=== PATIENT | male | born 1950 | race Caucasian/White ===

== ENCOUNTER 2023-08-26 16:20 | Inpatient (IN) | payer MEDICARE, OTHER, SELFPAY ==
[2023-08-26] VITALS (13 sets, daily range): BP systolic 28–154; BP diastolic 70–96; BMI 23.2
--- NOTE | 2023-08-26 07:46 | ED.GENMED ---
History of Present Illness
<Juliocesar Boyle PA-C - Last Filed: 08/26/23 10:47>
General
Chief Complaint: Abdominal Pain
Source: patient and family
Time Seen by Provider: 08/26/23 07:34
Travel History
Have you had any contact with someone who has COVID-19?: No
Do you have any symptoms of coronavirus? Fever > 100 degrees, chills, cough, shortness of breath, sore throat, loss of taste or smell, muscle aches, or headache?: No
History of Present Illness
History of Present Illness:
73-year-old male with past medical history of kidney disease presenting the emergency department for evaluation of 1 week of abdominal discomfort, initially generalized but over the last few days more localized to the right lower quadrant. Patient
states he felt as if he were constipated but notes he had a fairly large bowel movement yesterday but did not have any relief of his symptoms. He attempted to have a bowel movement this morning but due to the nature of the pain was unable to do so
and decided to come to the ER for further evaluation. States has had a little bit of diminished p.o. intake to solids but not liquids, no nausea or vomiting, no urinary symptoms, no fevers but does admit to some cold sweats this morning. Denies
any history of similar. Social history was noted for occasional cigar. Patient does note a previous history of abdominal hernia repairs but no other abdominal surgeries. No other concerns.
Past History
<Juliocesar Boyle PA-C - Last Filed: 08/26/23 10:47>
Past History
ED Past Medical History: Renal failure, Other (Kidney stones) and Other (BPH)
ED Past Surgical History: Orthopedic and Urological
Social History
Tobacco: Non-smoker
Alcohol: Occasional
Drug: None
Personal:
Living: with family
Employment: Employed
Family History
Family History: Other (Noncontributory)
Review of Systems
<Juliocesar Boyle PA-C - Last Filed: 08/26/23 10:47>
Review of Systems
All Other Systems: ROS reviewed and negative except as documented in HPI and ROS
Phy Exam
<Juliocesar Boyle PA-C - Last Filed: 08/26/23 10:47>
Physical Exam
Physical Exam:
GENERAL: Alert , appears quite uncomfortable
EYE: clear conjunctiva b/l
HEAD: NCAT
ENT: o/p clr, mmm.
CARDIAC: Regular rate and rhythm .
LUNGS: Clear breath sounds bilaterally, no acute respiratory distress, no wheezes/rales/rhonchi
ABDOMEN: Firm and rigid, significantly tender in the right lower quadrant with guarding, normoactive bowel sounds
NEUROLOGICAL: Alert and oriented
SKIN: Warm and dry, skin intact.
MUSCULOSKELETAL: well perfused.
PSYCH: Normal and appropriate interaction.
Scores
<Juliocesar Boyle PA-C - Last Filed: 08/26/23 10:47>
Heart Failure Risk
Heart Failure Risk Score: Not Applicable
Heart Score for Chest Pain Patients
STEMI patient?: Not applicable
Withdrawal Assessment of Alcohol
Withdrawal Assessment Completed?: Not applicable
Course
<Juliocesar Boyle PA-C - Last Filed: 08/26/23 10:47>
Orders/Labs/Results
Orders:
Orders
08/26/23 07:45
Urinalysis Reflex To Culture Urgent
Date Specimen was Collected: 08/26/23
Time Specimen was Collected: 10:32
0.9% Sodium Chloride 1000 ml [Nss] 1,000 ml IV BOLUS
HYDROmorphone [Dilaudid] 0.5 mg IV NOW STA
Iohexol [Omnipaque] See Protocol PO NOW STA
08/26/23 08:03
Ondansetron Injectable [Zofran] 4 mg .ROUTE .STK-MED ONE
Ondansetron Injectable [Zofran] 4 mg IV NOW STA
08/26/23 08:07
Complete Blood Count/With Diff Urgent
Comprehensive Metabolic Panel Urgent
Lactic Acid Q4H
Comment: CANCEL 2nd LACTIC ACID IF 1st LACTIC ACID IS LESS THAN 2
Lipase Urgent
PTT Urgent
Prothrombin Time Urgent
Blood Culture Q30M
JAMES Source: Blood/Venous
Specimen Description:
Blood Culture Q30M
JAMES Source: Blood/Venous
Specimen Description:
08/26/23 08:37
HYDROmorphone [Dilaudid] 1 mg IV NOW STA
08/26/23 09:24
CT Abd/pel W Iv And Oral Contr Urgent
Comment:
Reason For Exam: RLQ pain, guarding
08/26/23 10:04
HYDROmorphone [Dilaudid] 1 mg IV NOW STA
Piperacillin/Tazo 3.375 Gram [Zosyn] 3.375 gram in 50 ml IV NOW
08/26/23 10:33
Fentanyl Citrate/Pf [Sublimaze] 100 mcg .ROUTE .STK-MED ONE
Midazolam HCl [Versed] 2 mg .ROUTE .STK-MED ONE
08/26/23 10:34
Dexamethasone Sod Phosphate [Decadron] 20 mg .ROUTE .STK-MED ONE
Lidocaine 2% Mpf [Xylocaine Mpf 2%] 100 mg .ROUTE .STK-MED ONE
Ondansetron Injectable [Zofran] 4 mg .ROUTE .STK-MED ONE
Propofol [Diprivan] 20 ml .ROUTE .STK-MED
Rocuronium [place] [Rocuronium] 50 mg .ROUTE .STK-MED ONE
08/26/23 11:45
Lactic Acid Q4H
Comment: CANCEL 2nd LACTIC ACID IF 1st LACTIC ACID IS LESS THAN 2
Abnormal Lab Results
08/26/23
08:07
WBC 13.7 H 10^3/uL
(4.8-10.8)
MCH 32.7 H pg
(27.0-31.0)
Abs Immat Gran (auto) 0.1 H 10^3/uL
(0-0.05)
Absolute Neuts (auto) 11.2 H 10^3/uL
(1.4-6.5)
Absolute Monos (auto) 1.0 H 10^3/uL
(0.1-0.6)
Neutrophils % 81.7 H %
(42.2-75.2)
Lymphocytes % 9.8 L %
(20.5-51.1)
Glucose 176 H mg/dl
(70-99)
Total Bilirubin 1.8 H mg/dl
(0.2-1.3)
08/26/23 08:07
08/26/23 08:07
Vital Signs
Initial and Last Documented VS:
Initial Vital Signs
Temp Pulse Resp BP Pulse Ox
98.5 F 74 18 141/85 98
08/26/23 07:27 08/26/23 07:27 08/26/23 07:27 08/26/23 07:27 08/26/23 07:27
Last Documented Vital Signs
Temp Pulse Resp BP Pulse Ox
98.5 F 87 30 146/88 96
08/26/23 07:27 08/26/23 10:00 08/26/23 10:00 08/26/23 10:00 08/26/23 10:16
Rubber Compounder consulted with Physician
Rubber Compounder consulted with physician?: Yes
Name of Physician Consulted: Dariel
<Frantz Vieira, DO - Last Filed: 08/26/23 10:08>
Orders/Labs/Results
Orders:
Orders
08/26/23 07:45
Urinalysis Reflex To Culture Urgent
Date Specimen was Collected: 08/26/23
Time Specimen was Collected: 10:32
0.9% Sodium Chloride 1000 ml [Nss] 1,000 ml IV BOLUS
HYDROmorphone [Dilaudid] 0.5 mg IV NOW STA
Iohexol [Omnipaque] See Protocol PO NOW STA
08/26/23 08:03
Ondansetron Injectable [Zofran] 4 mg .ROUTE .STK-MED ONE
Ondansetron Injectable [Zofran] 4 mg IV NOW STA
08/26/23 08:07
Complete Blood Count/With Diff Urgent
Comprehensive Metabolic Panel Urgent
Lactic Acid Q4H
Comment: CANCEL 2nd LACTIC ACID IF 1st LACTIC ACID IS LESS THAN 2
Lipase Urgent
PTT Urgent
Prothrombin Time Urgent
Blood Culture Q30M
JAMES Source: Blood/Venous
Specimen Description:
Blood Culture Q30M
JAMES Source: Blood/Venous
Specimen Description:
08/26/23 08:37
HYDROmorphone [Dilaudid] 1 mg IV NOW STA
08/26/23 09:24
CT Abd/pel W Iv And Oral Contr Urgent
Comment:
Reason For Exam: RLQ pain, guarding
08/26/23 10:04
HYDROmorphone [Dilaudid] 1 mg IV NOW STA
Piperacillin/Tazo 3.375 Gram [Zosyn] 3.375 gram in 50 ml IV NOW
08/26/23 10:33
Fentanyl Citrate/Pf [Sublimaze] 100 mcg .ROUTE .STK-MED ONE
Midazolam HCl [Versed] 2 mg .ROUTE .STK-MED ONE
08/26/23 10:34
Dexamethasone Sod Phosphate [Decadron] 20 mg .ROUTE .STK-MED ONE
Lidocaine 2% Mpf [Xylocaine Mpf 2%] 100 mg .ROUTE .STK-MED ONE
Ondansetron Injectable [Zofran] 4 mg .ROUTE .STK-MED ONE
Propofol [Diprivan] 20 ml .ROUTE .STK-MED
Rocuronium [place] [Rocuronium] 50 mg .ROUTE .STK-MED ONE
08/26/23 11:45
Lactic Acid Q4H
Comment: CANCEL 2nd LACTIC ACID IF 1st LACTIC ACID IS LESS THAN 2
Abnormal Lab Results
08/26/23
08:07
WBC 13.7 H 10^3/uL
(4.8-10.8)
MCH 32.7 H pg
(27.0-31.0)
Abs Immat Gran (auto) 0.1 H 10^3/uL
(0-0.05)
Absolute Neuts (auto) 11.2 H 10^3/uL
(1.4-6.5)
Absolute Monos (auto) 1.0 H 10^3/uL
(0.1-0.6)
Neutrophils % 81.7 H %
(42.2-75.2)
Lymphocytes % 9.8 L %
(20.5-51.1)
Glucose 176 H mg/dl
(70-99)
Total Bilirubin 1.8 H mg/dl
(0.2-1.3)
08/26/23 08:07
08/26/23 08:07
Vital Signs
Initial and Last Documented VS:
Initial Vital Signs
Temp Pulse Resp BP Pulse Ox
98.5 F 74 18 141/85 98
08/26/23 07:27 08/26/23 07:27 08/26/23 07:27 08/26/23 07:27 08/26/23 07:27
Last Documented Vital Signs
Temp Pulse Resp BP Pulse Ox
98.5 F 87 30 146/88 96
08/26/23 07:27 08/26/23 10:00 08/26/23 10:00 08/26/23 10:00 08/26/23 10:16
<Juliocesar Boyle PA-C - Last Filed: 08/26/23 10:47>
MDM/Problems Addressed
Differential Diagnosis Includes:
Peritonitis, appendicitis, colitis, diverticulitis, surgical abdomen, constipation
MDM/Problems Addressed:
73-year-old male presenting to the emergency department for evaluation of right lower quadrant abdominal pain x 1 week, today symptoms worse. Did not take anything for pain. Appears very uncomfortable and has significant tenderness within the
right lower quadrant during my exam. Patient notes a history of renal cancer and kidney disease so will avoid any nephrotoxic agents including IV contrast. CT scan with oral contrast ordered. Dilaudid ordered for pain control. Labs including
lactic acid and blood cultures ordered. Anticipate admission.
Chronic conditions affecting care: Kidney disease
<Juliocesar Boyle PA-C - Last Filed: 08/26/23 10:47>
*Pulse Oximetry
Patient hypoxic: no
*Critical Care Note
Total Time (30-74mins, 75-104mins- exclusive of procedures): Not Applicable
Data Reviewed
Review of Other/Old Records Reveals: Labs and Records
Source: patient and family
<SHASHA Zavaleta Last Filed: 08/26/23 10:47>
Comment
Comment:
On multiple reevaluations patient with continued pain despite IV Dilaudid. Based off his labs patient is okay to have an IV contrast study so to help expedite CT scan this was changed to both an IV and oral contrast study.
Patient Management
Discussion with other providers: Instrument Repair Supervisor and Radiologist
Escalation/DeEscalation of care consider admission/obs:
Radiologist notified that patient has acute appendicitis with appendicoliths. No perforation. Surgery was notified and will come to the ER to evaluate patient. Additional dose of Dilaudid was given. Patient taken to the OR within the hour.
ED Attending Note
<Juliocesar Boyle PA-C - Last Filed: 08/26/23 10:47>
-
Portions of this chart may have been created with voice recognition software.� Occasional wrong word or��sound alike� substitutions may have occurred due to the inherent limitations of voice recognition software.
<Frantz Vieira DO - Last Filed: 08/26/23 10:08>
ED Attending Note
Patient seen and examined by attending physician: Yes
I performed the substantive portion of visit, reviewed & personally made and approve the management plan that is documented in note by myself or SILVINA.: Yes
ED Attending Note:
I have seen and evaluated the patient with a [id number] encounter. I have spoken to the advance practicer provider and involved in the medical history, the physical exam, medical decision making.
Evaluation and management service: agree unless noted differently below.
Results interpretation: agree unless noted differently below.
Focused HPI: 73-year-old male presenting with right lower quadrant pain. This has been ongoing for the past week or so
Physical exam: Very uncomfortable. Point tenderness to right lower quadrant
Medical Decision Making: CT consistent with acute appendicitis. Patient started on Zosyn. Surgery made aware
Discharge Plan
Departure
Patient Disposition: Admit
Date of Disposition: 08/26/23
Time of Disposition: 10:07
Admit to: Med/Surg
Presentation/result/management discussed w/ accepting MD/DO: General surgeon
Discharge Problem:
Acute appendicitis
Prescriptions:
No Action
duloxetine 30 MG capsule,delayed release(DR/EC)
30 mg PO DAILY
amlodipine 5 mg tablet
5 mg PO DAILY
hydrocodone-acetaminophen 7.5-325 mg tablet
1 tab PO Q8HPRN PRN (Reason: SEVERE PAIN)
ibuprofen 200 mg Tablet
200 mg PO Q6H PRN (Reason: MILD PAIN)
magnesium oxide 500 mg magnesium Tablet
500 mg PO DAILY
omega 7-bic-sbt-fish oil [Fish Oil] 60-90-500 mg Capsule
1 cap PO DAILY
For Life Supplements
1 dose PO DAILY
Referrals:
Patrick Noble, [Family Provider] -
Interventions
Interventions:
*Risk Screen - Suicide Last Done: 08/26/23 07:27
*General Assessment Last Done: 08/26/23 07:27
*Neglect/Abuse Screening Last Done: 08/26/23 07:27
ED- Fall Risk Assessment Last Done: 08/26/23 08:04
*ED COVID-19 Vaccine History Last Done: 08/26/23 07:27
TK-Vpagkf-Zrvggccjvr Assessment Last Done: 08/26/23 08:04
Discharge Date and Time
Print Language: RWANDAN
[2023-08-26] MEDS: ZOFRAN 4 MG IV (08:08)
[2023-08-26] MEDS: DILAUDID 0.5 MG IV (08:08)
[2023-08-26] MEDS: NSS 1000 IV (08:08)
[2023-08-26] MEDS: OMNIPAQUE 50 ML PO (08:09)
[2023-08-26 08:32] LABS: % Basophils 0.2 % (0-2); % Eosinophils 0.4 % (0-6); % Immature Granulocytes 0.4 % (0-0.5); % Lymphocytes 9.8 % (20.5-51.1); % Monocytes 7.5 % (1.7-9.3); % Neutrophils 81.7 % (42.2-75.2); Absolute Eosinophils 0.1 10^3/uL (0-0.7); Absolute Immature Granulocytes 0.1 10^3/uL (0-0.05); Absolute Lymphocytes 1.3 10^3/uL (1.2-3.4); Absolute Neutrophils 11.2 10^3/uL (1.4-6.5); Hematocrit 45.2 % (39.0-52.0); Hemoglobin 16.3 g/dL (13.0-18.0); Mean Corp Hgb Conc. 36.1 g/dL (33.0-37.0); Mean Corpuscular Hgb 32.7 pg (27.0-31.0); Mean Corpuscular Volume 90.6 fL (80.0-94.0); Mean Platelet Volume 9.5 fL (7.4-10.4); Nucleated Red Blood Cells % 0 % (-); Platelet Count 187 10^3/uL (130-400); Red Blood Cell Count 4.99 10^6/uL (4.70-6.10); Red Cell Dist. Width 12.9 % (11.5-14.5); White Blood Cell Count 13.7 10^3/uL (4.8-10.8)
[2023-08-26 08:43] LABS: INR 1.06; PT 13.6 Sec (11.4-14.6)
[2023-08-26 08:44] LABS: APTT 27.9 Sec (23.4-35.0)
[2023-08-26 08:55] LABS: ALT (SGPT) 30 U/L (0-50); AST (SGOT) 26 U/L (17-59); Albumin 4.5 g/dl (3.5-5.0); Alkaline Phosphatase 89 U/L (38-126); Blood Urea Nitrogen 18 mg/dl (9-20); Calcium 9.7 mg/dl (8.4-10.2); Carbon Dioxide 25 mmol/L (22-30); Chloride 104 mmol/L (98-107); Estimated Creatinine Clearance 56 ml/min; Glucose 176 mg/dl (70-99); Lipase 100 U/L (23-300); Potassium 4.5 mmol/L (3.5-5.1); Sodium 139 mmol/L (135-145); Total Bilirubin 1.8 mg/dl (0.2-1.3); Total Protein 7.7 g/dl (6.3-8.2); eGFR > 60.00
[2023-08-26 08:56] LABS: Lactic Acid 1.6 mmol/L (0.7-2.0)
[2023-08-26] MEDS: DILAUDID 1 MG IV ×2 (09:00→10:06)
[2023-08-26] MEDS: ZOSYN 50 IV (10:07)
--- NOTE | 2023-08-26 11:13 | W.SUR.PREOP ---
Pre-Operative Surgical Note
-
I have examined this patient prior to the performance of the scheduled procedure.
The patient's condition is unchanged from the time of the current History and
Physical and the patient is able to undergo the scheduled procedure.
--- NOTE | 2023-08-26 11:14 | HPS.HSE ---
Family Physician
-
Family Physician: Patrick Noble
Chief Complaint
-
Abdominal pain
History of Present Illness
This is a 73-year-old male who presents with a 1 week history of abdominal discomfort now more focalized to the right lower quadrant. Patient initially stated that it felt like constipation and had a fairly large bowel yesterday but did not feel
any relief of symptoms. He is nauseous and endorses some anorexia but no vomiting. The patient denies Fever, Chest Pain, Shortness Of Breath, changes in urinary and bowel habits, unintentional weight loss, jaundice, icterus, acolic stools.
Medical History
Past Medical History
Past Medical History: Reports Other (Renal failure, kidney stones, BPH)
Past Surgical History: Reports Orthopedic, Urological and Other (?Hernia surgery)
Social History
Tobacco: Non-smoker
Alcohol: Occasional
Drug: None
Personal:
Living: With Family
Family History
Family History: Not pertinent
Allergies / Home Medications
Allergies reflects when Allergies were last updated in [facility].
Home Medications with original date entered in [facility]
Allergy/Medication List:
No known drug allergies.
Review of Systems
-
A 12 point ROS was completed and negative except as noted: Yes
Physical Exam
Vital Signs
Vital Signs
Temp Pulse Resp BP Pulse Ox
98.5 F 94 28 146/88 95
08/26/23 07:27 08/26/23 10:30 08/26/23 10:30 08/26/23 10:00 08/26/23 10:30
Physical Exam
General: Well Developed
HEENT: NormoCephalic
Respiratory: Non Labored Respirations
GI: Soft, Tender, Distended and Other (Rigid abdomen.)
Laboratory Results
-
08/26/23 08:07
08/26/23 08:07
Laboratory Results
PT 13.6 Sec (11.4-14.6) 08/26/23 08:07
INR 1.06 08/26/23 08:07
APTT 27.9 Sec (23.4-35.0) 08/26/23 08:07
Lactic Acid Cancelled 08/26/23 11:45
Total Bilirubin 1.8 mg/dl (0.2-1.3) H 08/26/23 08:07
AST 26 U/L (17-59) 08/26/23 08:07
ALT 30 U/L (0-50) 08/26/23 08:07
Alkaline Phosphatase 89 U/L (38-126) 08/26/23 08:07
Lipase 100 U/L (23-300) 08/26/23 08:07
Data Reviewed
-
CT Scan: Image Personally Visualized and interpreted, Report Reviewed by me, Discussed with Physician and Discussed with Patient
Lab Data: Labs Reviewed by me, Discussed with Physician, Discussed with Patient and Discussed with Family
Impression/Plan
-
This is a 73-year-old male who presents with 1 week history of worsening abdominal pain now focal to the right lower quadrant. He is rigid on exam. Vital signs are otherwise stable. He does have a leukocytosis and his CT scan has a very large
dilated appendix with appendicolith concerning for acute appendicitis.
N.p.o., IV fluids, IV Zosyn
Will plan for laparoscopic, possible open appendectomy in the OR today.
Risks/Benefits/Alternatives, expected postoperative course and possible complications (bleeding, infection, injury to surrounding structures, acute/chronic pain) discussed at length. Patient wishes to proceed with surgery. All questions answered.
Consent obtained.
I spent roughly 75 minutes in total for the care of this patient today including direct patient care and counseling, reviewing labs, imaging, coordination of care, as well as documentation.
--- NOTE | 2023-08-26 14:07 | W.IMMPOSTOP ---
Addendum entered and electronically signed by Juan Antonio Shipman MD 08/26/23 20:37:
Of note, patient did did have an episode of emesis (oatmeal) on induction, despite RSI. Unclear if patient truly aspirated.
Original Note:
Surgical Immed Post Op Note
-
Primary Surgeon: Juna Antonio Shipman MD
Assisting Surgeon: Gibson Whatley MD
Pre-op Diagnosis: Acute appendicitis
Post-op Diagnosis: Perforated appendicitis
Procedure Performed:
1. Laparoscopic cecectomy
2. Washout of intra-abdominal abscess
Anesthesia Type: General
Specimen / Cultures:
1. Right lower quadrant fluid for Gram stain and culture.
2. Cecum and appendix
Estimated Blood Loss: 11cc
Complications: None
Operative Findings: Perforated appendicitis with purulent fluid tracking along the entire right colic gutter from above the liver to down the pelvis. Fecalith at the base of the appendix with gangrenous changes and perforation noted there.
Chacorta assisted with mobilization of the terminal ileum as well as the right colon before we were able to perform the cecectomy, taking care to preserve the ileocolic valve.
POST OP PLAN:
Imaging: Chest x-ray to confirm NG tube placement
Labs: Routine AM
Diet: n.p.o.
Analgesia: IV Tylenol, Dilaudid 0.5mg q2h PRN
Neuro/vascular checks: q4h
AC/AP: Hold Therapeutic AC, Ok for DVT PPx
Activity: Ad Jennie
Wound/Incisions/Drains: Routine, DANN to bulb suction. Lazaro to gravity, anticipate removal tomorrow.
Abx: Continue antibiotics x 7 days.
Dispo: RNF
[2023-08-26] MEDS: NORMOSOL-R 1000 IV (14:55)
--- NOTE | 2023-08-26 15:35 | PTCARENOTE ---
Pt arrived to [facility] from PACU s/p perforated appendicitis and ileocecectomy. Pt IVF infusing, on 3L NV satting 95%, 2 lap sites AKANKSHA, both C/D/I, suprapubic DANN drain in place draining sanguineous, R nare NGT in place to low intermittent suction,
Lazaro in place draining yellow urine. Pt oriented to call castro with room, bed locked and in lowest position, call castro within reach. Pt states pain 3/10 and declines pain medication at this time.
[2023-08-26] MEDS: OFIRMEV 100 IV (17:07)
[2023-08-26] MEDS: LOVENOX 40 MG SC (17:09)
[2023-08-26] MEDS: NSS (PRESERVATIVE FREE) 10 ML IV (21:14)
[2023-08-26] MEDS: PROTONIX IV 40 MG IV (21:14)
[2023-08-27] MEDS: OFIRMEV 100 IV ×3 (00:17→12:05)
[2023-08-27 03:00] VITALS: BP 121/67
--- NOTE | 2023-08-27 05:07 | PTCARENOTE ---
Pt stated that NGT 'felt weird' Looked in the back of his mouth and the tube was curled in back of pt throat. NGT removed at this time. train caller general surgeon Dr. Petit notified. orders received, abstain from placing new NGT unless nauseous.
Placed pt on aspiration precautions. HOB locked at 30 degrees. Pt updated of plan of care.
[2023-08-27] MEDS: NORMOSOL-R 1000 IV ×2 (05:24→17:27)
[2023-08-27 05:59] LABS: % Basophils 0.1 % (0-2); % Immature Granulocytes 0.3 % (0-0.5); % Lymphocytes 5.8 % (20.5-51.1); % Monocytes 6.5 % (1.7-9.3); % Neutrophils 87.3 % (42.2-75.2); Absolute Lymphocytes 0.6 10^3/uL (1.2-3.4); Absolute Monocytes 0.7 10^3/uL (0.1-0.6); Absolute Neutrophils 9.5 10^3/uL (1.4-6.5); Hematocrit 39.5 % (39.0-52.0); Mean Corp Hgb Conc. 35.4 g/dL (33.0-37.0); Mean Corpuscular Volume 93.2 fL (80.0-94.0); Mean Platelet Volume 9.6 fL (7.4-10.4); Nucleated Red Blood Cells % 0 % (-); Platelet Count 138 10^3/uL (130-400); Red Blood Cell Count 4.24 10^6/uL (4.70-6.10); Red Cell Dist. Width 13.1 % (11.5-14.5); White Blood Cell Count 10.9 10^3/uL (4.8-10.8)
[2023-08-27 06:35] LABS: Blood Urea Nitrogen 23 mg/dl (9-20); Calcium 8.3 mg/dl (8.4-10.2); Carbon Dioxide 24 mmol/L (22-30); Chloride 106 mmol/L (98-107); Estimated Creatinine Clearance 62 ml/min; Glucose 123 mg/dl (70-99); Sodium 139 mmol/L (135-145); eGFR > 60.00
[2023-08-27 07:45] VITALS: BP 135/75
[2023-08-27] MEDS: NORVASC 5 MG PO (08:19)
[2023-08-27] MEDS: CYMBALTA DELAYED RELEASE 30 MG PO (08:19)
[2023-08-27] MEDS: PROTONIX IV 40 MG IV (08:19)
[2023-08-27] MEDS: NSS (PRESERVATIVE FREE) 10 ML IV (08:19)
[2023-08-27] MEDS: DILAUDID 0.5 MG IV (08:29)
--- NOTE | 2023-08-27 09:23 | W.PN.GS2 ---
Today's Communication / Plan
-
-- NPO, IVF, replace NGT if nausea or worsening abdominal pain
-- Pain control: Tylenol, Toradol, IV Dilaudid PRN
-- Abx: Zosyn
-- OOB/ambulate
Assessment / Plan
-
Patient is a 73 yp M POD#1 s/p laparoscopic partial cecectomy (with appendectomy) and drainage of intra-abdominal abscess
NG tube found to be coiled in back of throat and removed this AM. Denies any current nausea or vomiting. No worsening abdominal pain. Plan to monitor without an NG tube for ileus symptoms at this time, if worsening pain or nausea will need to
replace NG tube. Awaiting return of bowel function.
-- NPO, IVF, replace NGT if nausea or worsening abdominal pain
-- Pain control: Tylenol, Toradol, IV Dilaudid PRN
-- Abx: Zosyn
-- OOB/ambulate
-- Lazaro order for removal on POD#2
-- GI: Protonix
-- DVT: Lovenox
-- Home Amlodipine ordered
Subjective Data
-
Date of Service: August 27, 2023
No major complaints. Denies any nausea or vomiting. No. BM. No fevers. Denies chest pain or worsening shortness of breath. Minimal ambulation.
Objective Data
-
Intake and Output
08/26/23 08/27/23 08/28/23
06:59 06:59 06:59
Intake Total 1400 / 1400
Output Total 1688 / 1688
Balance -288 / -288
Intake:
IV fluids (Total) 1200 / 1200
Normosol 300 / 300
IV piggybacks 200 / 200
Amount instilled into GI Tube ( 0 / 0
Total)
Gastrostomy 0 / 0
Output:
Drain Output (Total) 188 / 188
Middle Abdomen Aroldo-Gutierrez A 188 / 188
Gastrointestinal tube output ( 350 / 350
Total)
Gastrostomy 350 / 350
Urine, Lazaro 1150 / 1150
Vital Signs
Temp Pulse Resp BP Pulse Ox
98.3 F 69 17 135/75 96
08/27/23 07:45 08/27/23 07:45 08/27/23 07:45 08/27/23 08:19 08/27/23 07:45
Lab Results
08/27/23 05:09
08/27/23 05:09
Calcium 8.3 mg/dl (8.4-10.2) L 08/27/23 05:09
Total Bilirubin 1.8 mg/dl (0.2-1.3) H 08/26/23 08:07
AST 26 U/L (17-59) 08/26/23 08:07
ALT 30 U/L (0-50) 08/26/23 08:07
Alkaline Phosphatase 89 U/L (38-126) 08/26/23 08:07
Total Protein 7.7 g/dl (6.3-8.2) 08/26/23 08:07
Albumin 4.5 g/dl (3.5-5.0) 08/26/23 08:07
Physical Exam
-
Gen: NAD
Abd: soft, mild/moderate tenderness, mild distension, non-peritoneal, incisions c/d/i - no erythema, ecchymosis or drainage, DANN seropourulent
[2023-08-27] MEDS: ZOSYN 50 IV ×3 (10:03→21:37)
--- NOTE | 2023-08-27 10:52 | OR.RPT ---
Operative Report
Operative Report
Patient Name: Javi Forrest
: 1950
Date of Operation: 08/26/2023
Preoperative Diagnosis: Acute Appendicitis
Postoperative Diagnosis: Perforated appendicitis, intra-abdominal abscess
Procedure(s):
1. Laparoscopic partial cecectomy (with appendectomy)
2. Drainage of the intra-abdominal abscess
Surgeon(s):
Dr. Shipman
Manager Of Construction(s):
Dr. Whatley
Anesthesia: General
Estimated Blood Loss: 11 cc
Urine Output: None
Drains/Lines/Implants:
1. 18 Occitan NG tube placed by anesthesia
2. 16 Occitan Lazaro catheter placed by nursing
3. 19 Occitan round Guzman drain
Specimens:
1. Right lower quadrant abscess fluid for Gram stain and culture
2. Partial cecectomy (cecum and appendix)
HPI/Surgical Indications:
This is a 73-year-old male who presents with a 1 week history of abdominal pain. Exam, labs and imaging are consistent with perforated acute appendicitis. Risks/Benefits/Alternatives were discussed at length, and the patient agreed to proceed with
surgery.
Operative Findings: Perforated appendicitis with purulent fluid tracking along the entire right colic gutter from above the liver to down the pelvis. Fecalith at the base of the appendix with gangrenous changes and perforation noted there.
Chacorta assisted with mobilization of the terminal ileum as well as the right colon before we were able to perform the partial cecectomy, taking care to preserve the ileocolic valve. The left lower quadrant 5 mm port was upsized to a 12 mm port.
Procedure Description:
The patient was placed in the supine position, with the left arm tucked, and general anesthesia was induced. The abdomen was prepared and draped in a sterile fashion so as to expose the entire abdomen. A surgical time out was taken. Abdominal access
was obtained with an 12mm infra-umbilical Dominic Entry. After confirming no injury on entrance, two additional 5mm ports were placed in the suprapubic area just off midline and in the left lower quadrant. The patient was placed in Trendelenberg with
the right slightly up . The appendix was identified in the right lower quadrant surrounded by an abscess which was unroofed by peeling off of the fold of Treves and the terminal ileum. There was pus noted to be tracking all along the right colic
gutter to above the liver and down into the pelvis. A sales representative livestock sample of this fluid was sent for culture before this was all suctioned out. The terminal ileum was mildly adherent to the right pelvic sidewall, this was taken down with sharp
dissection using a scissors. This helped expose the mesoappendix which was divided using LigaSure energy device. The mesoappendix was taken all the way to the body of the appendix itself which was then traced down towards the base of the cecum.
It was readily apparent there was a sub-cm perforation at the base of the appendix which would necessitate at least a partial cecectomy. At this point Dr. Whatley scrubbed in to help with the dissection as no other qualified expanded function dental assistant was available.
The white line of Toldt was identified and taken up the right side to mobilize the right colon up to the mid ascending colon. We then identified the right mesocolon and carefully from the underlying retroperitoneum to help fully mobilize
the appendix and base of the cecum. Initial attempt to divide the cecum using a 45 purple Endo TRUDI via the umbilical port was fairly awkward due to the angle so the left lower quadrant port was upsized to a 12 mm port. Getting good apposition of
the tissues was still difficult due to an appendicolith at the base of the cecum which we had identified preoperatively on CT. We then decided to take first bite using a 45 purple load angling more into the cecum, fairly flush with the terminal
ileum. We were then able to get a handle onto the specimen staple line and set up for better fire across the cecum with a 60 purple load. A final 45 purple load was used to complete the dissection. The cecum and appendix were placed in a
specimen retrieval bag. Hemostasis was achieved with the help of some Nallely sprayed over the surgical field. A 19 Occitan round Guzman was then introduced through the suprapubic port up the right colic gutter. This was sutured in place with a 2-0
nylon suture. The left lower quadrant 12 mm port was then closed with a single interrupted 0 PDS using an Endo passer device. Pneumoperitoneum was then evacuated and our umbilical Dominic port was removed along with the specimen. The umbilical port
was closed with a [id number] 0-PDS and the skin for all ports was closed with interrupted monocryls and covered with dermabond. The patient was awoken from anesthesia in good condition and transported to the recovery area.
I was the attending physician and performed the procedure with help from Dr. Whatley who assisted with tissue retraction, and helping provide exposure in this fairly challenging perforated appendectomy. I was present for all portions of the case
Juan Antonio Shipman MD
[2023-08-27 11:04] VITALS: BP 124/72
--- NOTE | 2023-08-27 11:43 | CM ---
Reviewed chart, met with patient to obtain information for assessment. Patient stated that he lives with his spouse in a two story home with two steps to enter. He described himself as independent with his ADLs, personal care, dressing and bathing.
He ambulates without device. 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 He drives and can transport himself to all of his appointments and does his own shopping.
He has never had VN services.
He has not been to a SNF in the past.
Patient has a prescription plan and he uses, [facility] in [place] for all of his medications.
His PCP is, Dr. Patrick Rayo
Patient stated that he is sore but he feels that he will be able to return home at discharge. Patient's who was at bedside confirmed that she could take care of him.
Plan: Case management will continue to follow and assist with discharge planning. Home when stable.
[2023-08-27 15:13] VITALS: BP 119/67
[2023-08-27] MEDS: TORADOL 15 MG IV (16:20)
[2023-08-27] MEDS: LOVENOX 40 MG SC (17:23)
[2023-08-27 23:00] VITALS: BP 132/71
[2023-08-28] MEDS: ZOSYN 50 IV ×4 (03:57→21:23)
[2023-08-28 07:05] VITALS: BP 142/78
[2023-08-28] MEDS: NORVASC 5 MG PO (07:31)
[2023-08-28] MEDS: CYMBALTA DELAYED RELEASE 30 MG PO (07:31)
[2023-08-28] MEDS: NORMOSOL-R 1000 IV (07:32)
[2023-08-28] MEDS: PROTONIX IV 40 MG IV (07:33)
[2023-08-28] MEDS: NSS (PRESERVATIVE FREE) 10 ML IV (07:34)
[2023-08-28 08:30] LABS: % Basophils 0.1 % (0-2); % Eosinophils 0.9 % (0-6); % Immature Granulocytes 0.3 % (0-0.5); % Lymphocytes 10.6 % (20.5-51.1); % Monocytes 6.8 % (1.7-9.3); % Neutrophils 81.3 % (42.2-75.2); Absolute Eosinophils 0.1 10^3/uL (0-0.7); Absolute Lymphocytes 0.9 10^3/uL (1.2-3.4); Absolute Monocytes 0.6 10^3/uL (0.1-0.6); Absolute Neutrophils 7.1 10^3/uL (1.4-6.5); Hematocrit 38.8 % (39.0-52.0); Hemoglobin 13.8 g/dL (13.0-18.0); Mean Corp Hgb Conc. 35.6 g/dL (33.0-37.0); Mean Corpuscular Hgb 32.7 pg (27.0-31.0); Mean Corpuscular Volume 91.9 fL (80.0-94.0); Mean Platelet Volume 9.5 fL (7.4-10.4); Nucleated Red Blood Cells % 0 % (-); Platelet Count 150 10^3/uL (130-400); Red Blood Cell Count 4.22 10^6/uL (4.70-6.10); Red Cell Dist. Width 13.3 % (11.5-14.5); White Blood Cell Count 8.8 10^3/uL (4.8-10.8)
[2023-08-28 08:33] LABS: Blood Urea Nitrogen 32 mg/dl (9-20); Calcium 8.8 mg/dl (8.4-10.2); Carbon Dioxide 23 mmol/L (22-30); Chloride 109 mmol/L (98-107); Estimated Creatinine Clearance 56 ml/min; Glucose 90 mg/dl (70-99); Potassium 3.7 mmol/L (3.5-5.1); Sodium 139 mmol/L (135-145); eGFR > 60.00
[2023-08-28 15:14] VITALS: BP 130/64
--- NOTE | 2023-08-28 15:22 | W.PN.GS2 ---
Today's Communication / Plan
-
ADAT
IV abx
Assessment / Plan
-
Patient is a 73 yp M POD#2 s/p laparoscopic partial cecectomy (with appendectomy) and drainage of intra-abdominal abscess
Passing flatus
-- CLD lunch --> LRD dinner
-- Pain control: Tylenol, Toradol, IV Dilaudid PRN
-- Abx: Zosyn
-- OOB/ambulate
-- Lazaro out, voiding
-- GI: Protonix
-- DVT: Lovenox
-- Home Amlodipine cont
Subjective Data
-
Date of Service: August 28, 2023
No complaints, passing flatus, feels less distended, hungry, pain controlled, ambulating, voiding
Objective Data
-
Intake and Output
08/27/23 08/28/23 08/29/23
06:59 06:59 06:59
Intake Total 1400 / 1400 2099 / 2099
Output Total 8 / 1887 1425 / 1425 385 / 385
Balance -488 / -488 675 / 675 -385 / -385
Intake:
Oral fluids 0 / 0
IV fluids (Total) 1200 / 1200 1800 / 1800
Normosol 300 / 300
IV piggybacks 200 / 200 300 / 300
Amount instilled into GI Tube ( 0 / 0
Total)
Gastrostomy 0 / 0
Output:
Drain Output (Total) 188 / 188 75 / 75
Middle Abdomen Aroldo-Gutierrez A 188 / 75 / 75
Gastrointestinal tube output ( 350 / 350
Total)
Gastrostomy 350 / 350
Urine, Lazaro 1350 / 1350 1350 / 1350
Urine, Voided 385 / 385
Vital Signs
Temp Pulse Resp BP Pulse Ox
97.7 F 68 18 130/64 97
08/28/23 15:14 08/28/23 15:14 08/28/23 15:14 08/28/23 15:14 08/28/23 15:14
Lab Results
08/28/23 08:05
08/28/23 08:05
Calcium 8.8 mg/dl (8.4-10.2) 08/28/23 08:05
Total Bilirubin 1.8 mg/dl (0.2-1.3) H 08/26/23 08:07
AST 26 U/L (17-59) 08/26/23 08:07
ALT 30 U/L (0-50) 08/26/23 08:07
Alkaline Phosphatase 89 U/L (38-126) 08/26/23 08:07
Total Protein 7.7 g/dl (6.3-8.2) 08/26/23 08:07
Albumin 4.5 g/dl (3.5-5.0) 08/26/23 08:07
Physical Exam
-
Gen: NAD
Abd: soft, approp ttp, incisions cdi, drain ss
--- NOTE | 2023-08-28 16:29 | CM ---
Patient seen at bedside, no concerns at this time. CM will continue to follow for discharge planning needs.
Plan; home
[2023-08-28] MEDS: LOVENOX 40 MG SC (17:01)
[2023-08-29] MEDS: ZOSYN 50 IV ×2 (04:24→10:35)
[2023-08-29 06:58] VITALS: BP 136/75
[2023-08-29 08:25] LABS: % Basophils 0.1 % (0-2); % Eosinophils 3.5 % (0-6); % Immature Granulocytes 0.4 % (0-0.5); % Lymphocytes 14.5 % (20.5-51.1); % Monocytes 6.8 % (1.7-9.3); % Neutrophils 74.7 % (42.2-75.2); Absolute Eosinophils 0.3 10^3/uL (0-0.7); Absolute Monocytes 0.5 10^3/uL (0.1-0.6); Absolute Neutrophils 5.3 10^3/uL (1.4-6.5); Hematocrit 41.2 % (39.0-52.0); Hemoglobin 14.2 g/dL (13.0-18.0); Mean Corp Hgb Conc. 34.5 g/dL (33.0-37.0); Mean Corpuscular Hgb 32.3 pg (27.0-31.0); Mean Corpuscular Volume 93.8 fL (80.0-94.0); Mean Platelet Volume 9.3 fL (7.4-10.4); Nucleated Red Blood Cells % 0 % (-); Platelet Count 155 10^3/uL (130-400); Red Blood Cell Count 4.39 10^6/uL (4.70-6.10); White Blood Cell Count 7.1 10^3/uL (4.8-10.8)
[2023-08-29] MEDS: NORVASC 5 MG PO (08:46)
[2023-08-29] MEDS: CYMBALTA DELAYED RELEASE 30 MG PO (08:48)
[2023-08-29] MEDS: FLUSH (NSS) 2 FLUSH IV ×2 (08:49→10:35)
[2023-08-29] MEDS: PROTONIX IV 40 MG IV (08:49)
[2023-08-29] MEDS: NSS (PRESERVATIVE FREE) 10 ML IV (08:49)
[2023-08-29 09:09] LABS: Blood Urea Nitrogen 26 mg/dl (9-20); Calcium 9.1 mg/dl (8.4-10.2); Carbon Dioxide 22 mmol/L (22-30); Chloride 109 mmol/L (98-107); Estimated Creatinine Clearance 56 ml/min; Glucose 94 mg/dl (70-99); Potassium 4.1 mmol/L (3.5-5.1); Sodium 140 mmol/L (135-145); eGFR > 60.00
--- NOTE | 2023-08-29 10:55 | W.PN.GS2 ---
Today's Communication / Plan
-
Dispo planning
Assessment / Plan
-
Patient is a 73 yp M POD#3 s/p laparoscopic partial cecectomy (with appendectomy) and drainage of intra-abdominal abscess
Will DC home today with an additional 4 days of antibiotics.
Patient takes hydrocodone at home for back pain, which should be enough to cover his surgical incisional pain as well.
Time Spent
Total Time Spent with Patient (in minutes): 20
Subjective Data
-
Date of Service: August 29, 2023
Interval Events:
No acute events overnight. Slept well. Pain Controlled. Denies Nausea/Vomiting, +bowel function. Tolerating diet.
Objective Data
-
Intake and Output
08/28/23 08/29/23 08/30/23
06:59 06:59 06:59
Intake Total 2100 / 2100 950 / 950 600 / 600
Output Total 1425 / 1425 970 / 970
Balance 675 / 675 -20 / -20 600 / 600
Intake:
Oral fluids 0 / 0 900 / 900 600 / 600
IV fluids (Total) 1800 / 1800
IV piggybacks 300 / 300 50 / 50
Output:
Drain Output (Total) 75 / 75
Middle Abdomen Aroldo-Gutierrez A 75 / 75
Urine, Lazaro 1350 / 1350
Urine, Voided 945 / 945
Suprapubic output 25 / 25
Other:
Number of approximated MODERATE 1
amounts of urine
Vital Signs
Temp Pulse Resp BP Pulse Ox
99.1 F 61 17 136/75 98
08/29/23 06:58 08/29/23 08:46 08/29/23 06:58 08/29/23 08:46 08/29/23 06:58
Lab Results
08/29/23 07:31
08/29/23 07:31
Calcium 9.1 mg/dl (8.4-10.2) 08/29/23 07:31
Total Bilirubin 1.8 mg/dl (0.2-1.3) H 08/26/23 08:07
AST 26 U/L (17-59) 08/26/23 08:07
ALT 30 U/L (0-50) 08/26/23 08:07
Alkaline Phosphatase 89 U/L (38-126) 08/26/23 08:07
Total Protein 7.7 g/dl (6.3-8.2) 08/26/23 08:07
Albumin 4.5 g/dl (3.5-5.0) 08/26/23 08:07
Physical Exam
-
GENERAL/NEURO: Awake, Alert, no distress
CHEST: Unlabored breathing on RA
ABDOMEN: Soft, Non-Tender, Non-Distended, incisions clean dry and intact, DANN with serous output. Removed at bedside.
[2023-08-29 11:31] VITALS: BP 139/74
--- NOTE | 2023-08-30 10:26 | W.DCSUMMARY ---
Discharge Summary
Discharge Data
Date of Admission: 08/26/23
Date of Discharge: 08/29/23
-
Pending Results: No
Hospital Course
73-year-old male who presents with a 1 week history of abdominal discomfort now more focalized to the right lower quadrant with CT scan has a very large dilated appendix with appendicolith concerning for acute appendicitis. He was taken to the OR
with perforated appendicitis noted intraop and laparoscopic cecectomy and washout of abdominal abscess performed. Once bowel recovery was assured, he was initiated on a liquid diet with slow advancement to solids which was well tolerated. He was
discharged to home on antibiotics once pain well managed and patient was tolerating diet. Outpatient follow up planned in the coming weeks.
Discharge Plan
-
Patient Disposition: Home (Routine Discharge)
Discharge Diagnosis/Procedures: Acute appendicitis. Laparoscopic cecectomy.
Condition: Good
Diet: No restrictions
Activity: No strenuous activity
Driving Restrictions: As prior to admission
Bathing Restrictions: OK to Shower
Activity Restrictions/Additional Instructions:
Instructions following Laparoscopic appendectomy
Please call [phone] if you have any questions or concerns after your surgery.
Wound Care:
Your incisions are covered with skin glue which will come off on its own in 5-10 days.
It is ok to shower the day after your surgery. Do not scrub the incisions, let soap and water wash over them and pat dry.
� Bruising around your incisions is normal.
� Using ice packs will help minimize this swelling.
� No swimming or soaking incisions for 1 week.
� Your stitches will dissolve and do not need to be removed.
Urinary retention:
If you are unable to urinate 6-8 hours after your surgery, please call [phone] to discuss further management.
Activity:
No heavy lifting more than 15 pounds for the next 3 weeks, then you may gradually lift heavier objects as tolerated by discomfort. Otherwise activity as tolerated by your comfort level.
Pain Management:
Use Tylenol, ibuprofen and ice packs to treat your pain.
� You may take 650 milligrams of Tylenol (Max 3 grams per day) every 6 hours, and 600 mg of ibuprofen also every 6 hours. (you can alternate them every 3 hours)
� You may use an ice pack to your incision as needed.
� If you still have pain not controlled by these measures, take your prescription pain medication if prescribed.
Medications:
You may resume your home medications.
Bowel Medications:
Prescription pain medication can make you constipated. If you take this medication, also take colace 100 mg twice daily (this is over the counter). If this is not sufficient, you may take Miralax (polyethylene glycol) to help move your bowels.
Diet:
After your procedure, there are no dietary restrictions.
Driving restrictions:
No driving if you are taking prescription pain medication or if you think your normal reaction time and attentiveness has been slowed by your surgery.
Things to Look out for:
Worsening Abdominal pain, redness or drainage from incision
Call Doctor for:
Please call if you notice worsening redness or drainage from incision(s) lasting longer than 5 days after your surgery, any foul-smelling drainage from the incision, pain not controlled by pain medications, persistent nausea and vomiting, or for any
fevers greater than 101.3 F. The number for questions/concerns is [phone]
Follow-up:
A follow-up appointment will be scheduled with your surgeon in 3-4 weeks. Please call prior to your appointment if you have any questions or concerns. [phone]
Referrals:
Patrick Noble, DO [Family Provider] -
Prescriptions:
New
amoxicillin-pot clavulanate 875-125 mg tablet
1 tab PO Q12 Qty: 8 0RF
Continued
duloxetine 30 MG capsule,delayed release(DR/EC)
30 mg PO DAILY
amlodipine 5 mg tablet
5 mg PO DAILY
hydrocodone-acetaminophen 7.5-325 mg tablet
1 tab PO Q8HPRN PRN (Reason: SEVERE PAIN)
ibuprofen 200 mg Tablet
200 mg PO Q6H PRN (Reason: MILD PAIN)
magnesium oxide 500 mg magnesium Tablet
500 mg PO DAILY
omega 5-gdt-cxu-fish oil [Fish Oil] 60-90-500 mg Capsule
1 cap PO DAILY
For Life Supplements
1 dose PO DAILY
Discharge Orders:
Discharge Patient (As Directed); Ordered 08/29/23
Ordered By: Juan Antonio Shipman
Discharge Date and Time
Discharge Date/Time: 08/29/23 12:54
Print Language: BENGALI
== END 2023-08-29 12:54 | disposition home or self-care (01) | DRG 331 ==
LOC: 2 SOUTH 16:20
PROVIDERS: Physician Assistant Medical; Radiology Diagnostic Radiology; ADMITTING PHYSICIAN Surgery; EMERGENCY PHYSICIAN Student in an Organized Health Care Education/Training Program; FAMILY PHYSICIAN Family Medicine
PROC: 0D9670Z Drainage of Stomach with Drainage Device, Via Natural or Artificial Opening (ICD-10-PCS; 2023-08-26)
PROC: 0DBH4ZZ Excision of Cecum, Percutaneous Endoscopic Approach (ICD-10-PCS; 2023-08-27)
PROC: 0DTJ4ZZ Resection of Appendix, Percutaneous Endoscopic Approach (ICD-10-PCS; 2023-08-27)
DX: K35.33 Acute appendicitis with perforation, localized peritonitis, and gangrene, with abscess (principal); K38.1 Appendicular concretions; K56.41 Fecal impaction; N20.0 Calculus of kidney; N40.0 Benign prostatic hyperplasia without lower urinary tract symptoms
CPT/HCPCS: 88304; 71045; 74177; 80048; 80053; 83605; 83690; 85025; 85610; 85730; 87040; 87070; 87075; 87077; 87149; 87186; 87205; 96361; 96365; 96375; 96376; 99285; 99406; Q9967